=== PATIENT | male | born 1990 | race African-American/Black ===

== ENCOUNTER 2025-06-21 17:47 | Emergency (ER) | payer MEDICARE, OTHER, SELFPAY ==
[2025-06-21 17:50] VITALS: BP 134/73
--- NOTE | 2025-06-21 18:29 | ED.GENMED ---
History of Present Illness
<Sony Moreira, DO - Last Filed: 06/21/25 18:33>
General
Chief Complaint: Crisis Evaluation
Source: patient
Exam Limitations: none
Time Seen by Provider: 06/21/25 18:23
History of Present Illness
History of Present Illness:
See MDM
Past History
<Sony Moreira, DO - Last Filed: 06/21/25 18:33>
Past History
ED Past Medical History: Psychiatric
ED Past Surgical History: None
Social History
Tobacco: Non-smoker
Alcohol: None
Phy Exam
<Sony Moreira, DO - Last Filed: 06/21/25 18:33>
Physical Exam
Physical Exam:
See MDM
Course
<Sony Moreira, DO - Last Filed: 06/21/25 18:33>
Orders/Labs/Results
Orders:
Orders
06/21/25 19:36
Urine Drug Abuse Screen Urgent
Date Specimen was Collected: 06/21/25
Time Specimen was Collected: 19:22
06/21/25 20:17
Crisis Consult Urgent
Reason for Consult: brought by elzbieta IBRAHIM for psych eval
06/21/25 22:04
ED Special Safety Observation ONCE
Observation level: One to Two
06/22/25 00:20
PSYCHIATRY CONSULT Urgent
Consulting Provider: Diaz James
Was physician already notified: No
Reason for consult: (?)hx schizophremia, bipolar. AH self harm thoughts (?)homeless
06/22/25 00:21
Consult Notification Routine
Specialty to Notify: Psychiatry
Date consulting provider notified: 06/22/25
Time consulting provider notified: 09:32
Notified:: Provider
Comment: Erika
06/22/25 00:22
Case Management Consult ONCE
Case Management Consult: Discharge Planning
Requested By:: PHYSICIAN
Comment: pt brought to ER by police. (?)psych hx (?)homeless
06/22/25 11:00
Risperidone [Risperdal] 3 mg PO DAILY
Vital Signs
Initial and Last Documented VS:
Initial Vital Signs
Temp Pulse Resp BP Pulse Ox
98.2 F 57 18 134/73 100
06/21/25 17:50 06/21/25 17:50 06/21/25 17:50 06/21/25 17:50 06/21/25 17:50
Last Documented Vital Signs
Temp Pulse Resp BP Pulse Ox
98.4 F 75 17 117/57 99
06/21/25 23:55 06/22/25 11:18 06/22/25 11:18 06/22/25 11:18 06/21/25 23:55
<Jordyn Hinds, - Last Filed: 06/22/25 12:40>
Orders/Labs/Results
Orders:
Orders
06/21/25 19:36
Urine Drug Abuse Screen Urgent
Date Specimen was Collected: 06/21/25
Time Specimen was Collected: 19:22
06/21/25 20:17
Crisis Consult Urgent
Reason for Consult: brought by elzbieta IBRAHIM for psych eval
06/21/25 22:04
ED Special Safety Observation ONCE
Observation level: One to Two
06/22/25 00:20
PSYCHIATRY CONSULT Urgent
Consulting Provider: Diaz James
Was physician already notified: No
Reason for consult: (?)hx schizophremia, bipolar. AH self harm thoughts (?)homeless
06/22/25 00:21
Consult Notification Routine
Specialty to Notify: Psychiatry
Date consulting provider notified: 06/22/25
Time consulting provider notified: 09:32
Notified:: Provider
Comment: Erika
06/22/25 00:22
Case Management Consult ONCE
Case Management Consult: Discharge Planning
Requested By:: PHYSICIAN
Comment: pt brought to ER by police. (?)psych hx (?)homeless
06/22/25 11:00
Risperidone [Risperdal] 3 mg PO DAILY
Vital Signs
Initial and Last Documented VS:
Initial Vital Signs
Temp Pulse Resp BP Pulse Ox
98.2 F 57 18 134/73 100
06/21/25 17:50 06/21/25 17:50 06/21/25 17:50 06/21/25 17:50 06/21/25 17:50
Last Documented Vital Signs
Temp Pulse Resp BP Pulse Ox
98.4 F 75 17 117/57 99
06/21/25 23:55 06/22/25 11:18 06/22/25 11:18 06/22/25 11:18 06/21/25 23:55
<Sony Moreira, DO - Last Filed: 06/21/25 18:33>
MDM/Problems Addressed
Differential Diagnosis Includes:
Note:
CHIEF COMPLAINT(S)
Confusion and talking to self.
HISTORY OF PRESENT ILLNESS
The patient is a 34-year-old male who presents with confusion and self-talking episodes. He reports a history of similar episodes in the past. He claims compliance to his medications for his schizophrenia and bipolar. The patient has disclosed
previous self-harm attempts and expressed a concern about potentially harming himself again. There is a note that he felt slightly improved after some food intake.
SOCIAL DETERMINANTS OF HEALTH
The patient mentioned a history of self-harm attempts and concern about potentially harming himself again.
PHYSICAL EXAM
General: Alert, no acute distress.
Skin: Warm, dry.
Head: Normocephalic, atraumatic
Neck: Appears supple, trachea midline.
Eyes, Ears, Nose, Mouth, and Throat: Moist mucous membranes
Cardiovascular: No signs of cyanosis
Respiratory: Respirations are non-labored.
Abdomen: Non-distended
Musculoskeletal: No deformities
Neurological: No focal neurological deficit observed.
Psychiatric: Responding to internal stimuli
SUMMARY OF ENCOUNTER
The patient presented to the emergency department with confusion and talking to self. He has a history of previous similar episodes and has expressed concerns about self-harm. He is currently taking his prescribed medications but did not provide
specific details. He noted some improvement after eating. A crisis intervention team is expected to engage with him for further assessment and management.
DISPOSITION
Awaiting evaluation by the crisis intervention team.
DIAGNOSIS
R41.0 Disorientation, unspecified. Possible risk of self-harm due to concern expressed by the patient.
SUMMARY OF ENCOUNTER
The patient, a 34-year-old male, presented to the emergency department with suicidal thoughts and worsening mental health. He reports experiencing auditory hallucinations and appears to be responding to internal stimuli. Despite claiming compliance
with medications, the symptoms have persisted. The current plan involves evaluating the need for inpatient psychiatric care by the crisis intervention team.
DISPOSITION
Awaiting evaluation by the crisis intervention team.
ASSESSMENT
The patient is experiencing auditory hallucinations and suicidal thoughts, suggesting a possible exacerbation of a psychiatric disorder. There is concern for the patients safety due to his reported suicidal ideation.
PLAN
The primary plan is to have the crisis intervention team assess the patient for potential inpatient psychiatric care to ensure his safety and provide appropriate management.
MANAGEMENT OF THE PATIENTS CARE WAS DISCUSSED WITH
The crisis intervention team is expected to evaluate the necessity of inpatient psychiatric care based on the patients current mental health status and risk factors for self-harm.
MEDICAL DECISION MAKING
1. Number and Complexity of Problems Addressed: Chronic conditions affecting care include a history of similar psychiatric episodes and current auditory hallucinations. Differential diagnosis includes exacerbation of a known mental health disorder.
2. Data:
- Category 3: Discussion of management with the crisis intervention team to evaluate the need for inpatient psychiatric care.
3. Risk: The patient is at significant risk of self-harm due to suicidal ideation and auditory hallucinations. Immediate psychiatric evaluation is necessary to determine the level of risk and appropriate intervention.
DIAGNOSIS
- R41.0 Disorientation, unspecified
- Z91.5 Personal history of self-harm
<Sony Moreira, DO - Last Filed: 06/21/25 18:33>
*Pulse Oximetry
SaO2: 100
Oxygen Mode of Delivery: Room air
Patient hypoxic: no
*Critical Care Note
Total Time (30-74mins, 75-104mins- exclusive of procedures): Not Applicable
<Jordyn Hinds DO - Last Filed: 06/22/25 12:40>
Update Note
Update Note:
Attending Sign Out Note (Jordyn Hinds DO)
10:19-27-ulkc-old male with history of schizophrenia presenting for auditory hallucinations. Patient also noted to be homeless. Patient seen by psychiatrist who was able to see patient's most recent hospital admissions. Patient recently admitted
at [facility] from 05/18 to 05/30. Patient subsequent went home with his mom, however notes that he was removed from his mother's house. He was also just admitted at [facility] from 06/17 to 06/21. Reported that he took a bus
and then subsequently came to [place]. He has never since followed up with his psychiatrist after recent hospitalization. In talking with psych, we will try to place. However at this time, no indication for involuntary committment.
12:40 -patient accepted to [facility]. Will provide transportation.
ED Attending Note
<Sony Moreira, DO - Last Filed: 06/21/25 18:33>
-
Portions of this chart may have been created with voice recognition software.� Occasional wrong word or��sound alike� substitutions may have occurred due to the inherent limitations of voice recognition software.
Discharge Plan
Departure
Patient Disposition: Psych Facility
Date of Disposition: 06/21/25
Time of Disposition: 18:33
Patient Status:: 201
Discharge Problem:
Suicidal thoughts
Interventions
Interventions:
*Risk Screen - Suicide Last Done: 06/21/25 17:48
*General Assessment Last Done: 06/22/25 10:28
*Neglect/Abuse Screening Last Done: 06/22/25 10:28
*ED- Fall Risk Assessment Last Done: 06/22/25 10:28
*ED COVID-19 Vaccine History Last Done: 06/21/25 23:57
*ED Influenza Vaccine History Last Done: 06/21/25 23:57
ED-Psychological Assessment Last Done: 06/21/25 22:20
Discharge Date and Time
Print Language: ICELANDIC
[2025-06-21 23:55] VITALS: BP 125/81
--- NOTE | 2025-06-22 10:45 | CON.MD ---
Addendum entered and electronically signed by Diaz James MD 06/22/25 10:54:
note patient denies hx substance abuse and uds is negative.
Original Note:
Consultation - Medical
-
patient seen chart reviewed. this consult done today june 22 2025. the patient is a 34 year old man who is not a good historian. i was able to obtain the following info from [facility]. the patient was dc from [facility] yesterday having been admitted
for hallucinations on 06/17. his dx is schizophrenia. he was at [facility] psych unit from 9.25 to 10.7 in between he lived at his mom's but she threw him out. he had been dc from [facility] on 05/15. he was to followup
at [facility] on 06/27 at 9 am. dc meds from [facility] included risperdal 3 mg daily. when dc from [facility] he had been prescribed depakote and klonopin which he does not wish to take. he took a bus to [facility] and got off locally. requested help from
police and was brought here. since coming he has said he has si. he said he thought of jumping off a bldg but said it is not likely he would do so. he has had si before with the same thought but did not act on it. he has been hosp several times over
the years. he hears voices and staff tells me he has not infrequently been observed talking and laughing to himself. he denies voices telling him to hurt self or others. appetite is good. sleep is fair.
past psych hx see above
medical hx gerd patient did have bloodwork done at [facility] and [facility]. results not available at present. have asked our staff to get bloodwork from [facility].
family hx patient says hx of mental illness in family
social one of four kids estranged from most of family. asked me NOT to call his mom who threw him out. 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
mse alert ox3 as cooperative as he could be. it is my impression that he is borderline intellect. thought process / content slow sparse poor historian hallucinates has had si but not acted on it. insight judgment lacking mood dysphoric affect
blunted
dx schizophrenia
plan resume risperdal. attempt to find a hospital bed for him. he does not want to return to [facility]. crisis to begin bed search . staff to request labs from [facility].
[2025-06-22 11:18] VITALS: BP 117/57
[2025-06-22] MEDS: RISPERDAL 3 MG PO (12:00)
== END 2025-06-22 13:45 ==
LOC: EMR 17:47
PROVIDERS: Student in an Organized Health Care Education/Training Program; CONSULT PHYSICIAN Psychiatry & Neurology Psychiatry; EMERGENCY PHYSICIAN Emergency Medicine
DX: R45.851 Suicidal ideations (principal); F20.9 Schizophrenia, unspecified; F31.9 Bipolar disorder, unspecified; K21.9 Gastro-esophageal reflux disease without esophagitis; Z91.199 Patient's noncompliance with other medical treatment and regimen due to unspecified reason; Z59.00 Homelessness unspecified; Z91.52 Personal history of nonsuicidal self-harm; Z81.8 Family history of other mental and behavioral disorders; R41.0 Disorientation, unspecified
CPT/HCPCS: 99285; 80306